=== PATIENT | female | born 1995 ===

== ENCOUNTER 2017-04-13 08:22 | Observation (INO) | payer OTHER ==
[~2017-04-13] VITALS: Ht 165.1 cm; Wt 90.0 kg
[2017-04-13] VITALS (7 sets, daily range): BP systolic 97–152; BP diastolic 60–95; PULSE 76–110; RESP 14–20; O2SAT 97–100
[~2017-04-13 08:22] MED LIST: ESOM40CA41 PO
--- NOTE | 2017-04-13 08:45 | ED.REPORT ---
HPI-Abd Pain F Under 40 Date of Service April 13, 2017 ED Provider: Niko Love MD The patient is a 22 year old female who presents to the ED due to severe vomiting since yesterday morning. For the past 2 years, she vomits bile nearly every day. In the past, she has been given Zofran which has been mildly effective in reducing her nausea. She was admitted at [facility], got an endoscopy and was told she had a hiatal hernia. Gastroenterology at [facility], later diagnosed her with acid reflux. She denies any other medical issues and uses the implant for control. She previously used marijuana regularly and just quit a week ago. Nursing Notes Stated Complaint: THROWING UP/NAUSEA/DEHYDRATED Chief Complaint: Female Abdominal Pain Nursing Notes Reviewed: Yes Allergies: Coded Allergies: No Known Allergies (Verified Allergy, Unknown, 06/14/16) Scheduled Esomeprazole Magnesium (Nexium) 40 Mg Capsule.dr 40 MG PO DAILY General Time Seen by MD: 08:45 Chief Complaint Vomiting moderate Hx Obtained From: Patient Arrived By: Walk-in Onset Occurred: Yesterday Symptom Duration: Since onset Progression since Onset: Gradually worsening Location: : Abdomen lower Quality: Painful Severity: Current: Mild Recent Healthcare: Recent doctor visit Similar Sx Previous: Yes Past Medical History Past Medical History Notes: no PCP at this time Past Medical History None reported Denies history of hepatitis Past Surgical History cholecystectomy 02/20/16 Reports: Cholecystectomy Family History none reported Smoking History Current Every Day Smoker Social History Alcohol Use: Denies alcohol use Drug Use: THC Ambulatory Status Independent Review of Systems GI: Reports: Vomiting Complete sys rev & neg: except as marked. Physical Exam Initial Vital Signs Vital Signs (First) Date Time Temp Pulse Resp B/P Pulse Ox O2 Delivery O2 Flow Rate FiO2 04/13/17 08:29 92 20 152/95 100 Room Air 04/13/17 08:42 37.0 Initial VS: Reviewed General/Constitutional: Awake, Alert, Cooperative Respiratory / Chest: Atraumatic, No respiratory distress, No wheezing Cardiovascular: Heart rate NL, Regular rhythm Abdomen: Soft Back: Full range of motion Head / Eyes: Normocephalic, PERRL ENT: Airway patent Skin: No rash, Warm, Dry Upper Extremity / MS: Atraumatic, Full range of motion Lower Extremity / Pelvis / MS: Atraumatic, Full range of motion Interpretation & Diagnostics Lab Results Interpretation Result Diagram: 04/13/17 1005 04/13/17 1005 Test 04/13/17 10:05 White Blood Count 23.0th/mm3 (3.8-10.1) Red Blood Count 5.50mil/mm3 (3.90-5.20) Hemoglobin 14.8g/dL (12.0-15.6) Hematocrit 43.1% (35.0-46.0) Mean Corpuscular Volume 78.4fL (81-100) Mean Corpuscular Hemoglobin 26.9pg (27.0-35.0) Mean Corpuscular Hemoglobin Concent 34.3% (32.0-37.0) Red Cell Distribution Width 14.1% (12.3-15.4) Platelet Count 302bil/L (150-400) Neutrophils (%) (Auto) 90.6% (40-74) Lymphocytes (%) (Auto) 5.2% (14-46) Monocytes (%) (Auto) 3.4% (4-12) Eosinophils (%) (Auto) 0% (0-5) Basophils (%) (Auto) 0.2% (0-3) Sodium Level 143mEq/L (134-144) Potassium Level 3.6mEq/L (3.5-5.2) Chloride Level 104mEq/L (97-108) Carbon Dioxide Level 19mmol/L (18-29) Blood Urea Nitrogen 10mg/dL (6-20) Creatinine 0.69mg/dL (0.57-1.00) Estimat Glomerular Filtration Rate 151mL/min (>59) Glucose Level 116mg/dL (60-99) Calcium Level 9.9mg/dL (8.5-10.1) Total Bilirubin 0.5mg/dL (0.0-1.2) Aspartate Amino Transf (AST/SGOT) 20U/L (0-50) Alanine Aminotransferase (ALT/SGPT) 12U/L (0-32) Alkaline Phosphatase 58U/L (25-150) Total Protein 7.9g/dL (6.4-8.4) Albumin 4.6g/dL (3.4-5.0) Lipase 27U/L (13-60) Re-Eval/Medical Decision Re-Evaluation/Progress : Time of Eval: 12:00 Re-Evaluation/Progress Note: Patient is moderately improved but not feeling well enough to go home. Consultation : Referral / Consult Name: Rashard Marrero MD Consulted With: Hospitalist Review Engineer: Accepts admit Counseled Regarding: Diagnosis, Lab results, Need for admission Discharge & Departure Primary Impression: Intractable nausea and vomiting Vomiting type: unspecified Qualified Code: R11.2 - Nausea with vomiting, unspecified Disposition: ADMITTED TO HOSPITAL Discharge Condition All VS Reviewed: Yes Condition: Stable Referrals: Flori Desir (PCP) Alma Attestation Portion of this note were transcribed by Ana Nelson. I, Dr. Love, personally performed the history, physical exam, and medical decision-making: I reviewed and confirmed the accuracy for the information in the transcribed note. Signed by: alma Garrido, 04/13/17 1400 copies to: Flori Desir Kirk H MD April 13, 2017 08:45 Ana Nelson April 13, 2017 08:52
[2017-04-13] MEDS ORDERED: 0.9% Sodium Chloride 1,000 ML IV ONE (09:02)
[2017-04-13] MEDS ORDERED: MetoCLOpramide 5 mg/mL 2 mL Inj IVPUSH ONE (09:05)
[2017-04-13] MEDS ORDERED: Ondansetron 2 mg/mL 2 mL Inj IVPUSH ONE (09:05)
[2017-04-13] MEDS ORDERED: Haloperidol 5 mg/mL Inj IVPUSH ONE ×2 (09:05→14:25)
[2017-04-13] MEDS ORDERED: Pantoprazole 4 mg/mL 10 mL Inj IVPUSH ONE (09:05)
[2017-04-13] MEDS ORDERED: Dexamethasone 10 mg/mL Inj IVPUSH ONE (09:05)
[2017-04-13] MEDS ORDERED: Acetaminophen IV 1,000 MG in IV Premix 1 EACH IV ONE (09:05)
[2017-04-13] MEDS ORDERED: Ondansetron 8 mg ODT Tablet PO ONE (09:05)
[2017-04-13] MEDS ORDERED: Promethazine 50 mg/mL Inj IM ONE (09:50)
[2017-04-13 10:18] LABS: BASOPHILS % (AUTO) 0.2 % (0-3); EOSINOPHILS % (AUTO) 0 % (0-5); MONOCYTES % (AUTO) 3.4 % (4-12); Mean Corpuscular Hemoglobin 26.9 pg (27.0-35.0); Mean Corpuscular Volume 78.4 fL (81-100); NEUTROPHILS % (AUTO) 90.6 % (40-74); Platelet Count 302 bil/L (150-400)
[2017-04-13] MEDS ORDERED: Ondansetron 2 mg/mL 2 mL Inj IVPUSH PRN (12:40)
[2017-04-13] MEDS ORDERED: Polyethylene Glycol (PEG) 17 Gm Powder PO PRN (12:40)
[2017-04-13] MEDS ORDERED: Alum-Mag Hydrox-Simeth 30 mL Suspension PO PRN (12:40)
[2017-04-13] MEDS: D5 0.9% NaCl + KCl 20 mEq/L 1,000 ML IV SCH ×2 (14:07→20:08)
--- NOTE | 2017-04-13 15:02 | NUR ---
Admit Pt arrived to [facility] 238-1 at 1303 from the ED via stretcher, ambulates w/o any assistance. Pt is a pleasant young lady, other than nausea and pain appears to be a perfectly well and healthy person. VS show mild hypertension but pt is afebrile. Pt oriented to room and call light, will call w/ needs.
[2017-04-13 15:09] LABS: APPEARANCE,URINE CLEAR (CLEAR,HAZY); COLOR,URINE YELLOW (YELLOW); PH,URINE 7.5 (5.0-8.0)
[2017-04-13 15:10] LABS: OCCULT BLOOD,URINE NEGATIVE (NEGATIVE); UROBILINOGEN,URINE NORMAL (NORMAL)
[2017-04-13] MEDS ORDERED: Haloperidol 5 mg/mL Inj IVPUSH PRN (15:50)
[2017-04-13] MEDS ORDERED: Donnatal-Lido-Mylant 1:1:1 15 mL Syringe PO PRN (15:50)
--- NOTE | 2017-04-13 15:53 | PCM.HPMED ---
Subjective Date of Service April 13, 2017 Primary Provider: Admitting Physician: Rashard Marrero MD Primary Care Physician: Nopshobha Attending Physician: Rashard Marrero MD Chief Complaint: Nausea and vomiting History of Present Illness: 22-year-old female presenting to emergency room due to severe vomiting starting 24 hours earlier. She has had issues with nausea and vomiting for 2 years. A year ago she had a cholecystectomy and had difficulty thereafter with postoperative nausea. She has since been admitted to [facility] and got EGD and told she had a hiatal hernia and then seen by GI at [facility] and diagnosed with reflux. She still smokes marijuana up until fairly recently. We have discussed and she is aware of cannabis hyperemesis syndrome. Review of Systems: Gen.: No fevers chills weight loss weight gain Eyes: no visual disturbances or blurring vision HEENT: No nose/throat drainage, no pain in ears or throat, no hearing loss Lymph: No lymph nodes noted Cardiac: No chest pain, orthopnea, PND, palpitations , pedal edema or dyspnea on exertion Pulmonary: no cough, wheezing or bringing up of sputum GI: Novomiting blood or black in the stool + nausea and vomiting : no dysuria hematuria urinary frequency or decrease in urine output Musculoskeletal: Joint swelling no joint pain no new muscle aches or back pain Neuro: No syncope, seizures no loss of consciousness no new focal weakness, numbness or tingling Psychiatric: New new anxiety insomnia or depression Endocrine: No new heat or cold intolerances polyuria or polydipsia Hematology: No lymphadenopathy or easy bleeding or bruising noted skin: No new rashes, stasis dermatitis Allergies Coded Allergies: No Known Allergies (Verified Allergy, Unknown, 04/13/17) Home Medications She tells me she is on no medications however esomeprazole 40 mg daily is listed In addition to her implanted control PMH GERD/hiatal hernia persistent nausea and vomiting Surgical history: Cholecystectomy 02/20/16 Social: Significant other at the bedside she smokes half a pack plus per day, minimal alcohol use, admits to marijuana states she quit a week ago. Family history negative for cancer, diabetes, early heart disease or anything else that might be related to this problem Social History Hx Alcohol Use: No Hx Substance Use: No Smoking Status: Current Every Day Smoker Exam Vital Signs Vital Sign - Last Date Time Temp Pulse Resp B/P Pulse Ox O2 Delivery O2 Flow Rate FiO2 5/23/17 14:56 36.8 88 16 148/93 100 Room Air Exam Gen.- A+ O 3 no apparent distress. Heavy female lying in bed looks tired Eyes- open conjunctiva clear, pupils equal nonicteric Mouth- oral mucosa moist, no exudate ENT- ears normal, nose normal Neck- supple/trach midline CVS- RRR no murmur or gallop Lungs- CTA GI- NABS/NT soft Musc- moving 4 no obvious deformity Neuro- cranial nerves II through XII intact to gross examination, nonfocal Skin- warm and dry, no rashes/lesions/wounds noted Psych- pleasant and appropriate, Lab and Diagnostics Result Diagram: 04/13/17 1005 04/13/17 1005 Additional Diagnostics: EGD IMPRESSIONS: 1. Mild bile reflux. 2. Mild nonerosive gastritis, status post biopsy. RECOMMENDATION: 1. Await pathology results. (-) H pylori, histo benign 2. Continue Nexium 40 mg once a day. 3. GERD diet. 4. Follow up in GI clinic as needed. Mitesh Rodríguez MD 09/04/16 0911 Assessment & Plan 22-year-old female with acute/chronic nausea and vomiting ongoing for greater than one year but acutely worse over 36 hours. Nausea/vomiting- differential includes cannabis hyperemesis syndrome, side effect of implanted control -CT scan 12/02/15 no hiatal hernia -IV fluids, monitor electrolytes -We will continue when necessary Zofran however this is not work patient as needed Haldol/Benadryl which she has been receiving with good results. -PPI, pantoprazole 40 mg twice a day in addition to H1RA twice a day -GI cocktail Leukocytosis- probable stress reaction monitor. Prophylaxis- DVT patient is low risk, GI on maximal therapy already. Disposition- patient is independent and has no discharge needs full code. Rashard Marrero MD April 13, 2017 15:53
[2017-04-13] MEDS ORDERED: Pantoprazole 40 mg ER24 Tablet PO SCH (16:30)
--- NOTE | 2017-04-13 18:15 | NUR ---
VS Pt vs have changed rapidly since admit. Pt now mildly febrile, bp drop and now tachy. continue to monitor per dr sykes.
[2017-04-13] MEDS: Famotidine Inj 20 MG in IV Premix 1 EACH IV SCH (20:07)
[2017-04-13] MEDS: Pantoprazole 4 mg/mL 10 mL Inj IVPUSH SCH (21:00)
[2017-04-14 00:31] VITALS: BP 101/58; PULSE 85; RESP 14; O2SAT 98
[2017-04-14] MEDS: D5 0.9% NaCl + KCl 20 mEq/L 1,000 ML IV SCH ×2 (02:11→09:50)
[2017-04-14 02:22] VITALS: BP 113/70; PULSE 81
[2017-04-14 05:19] VITALS: BP 109/68; PULSE 74; RESP 17; O2SAT 100
--- NOTE | 2017-04-14 05:21 | NUR ---
Shift Note Assumed pt care at 1900, Bp systolic trends throughout night mid 90's to low 100's, pt remained asymptomatic, continues with IVF, no nausea/vomiting, call light in reach at all times.
[2017-04-14 08:02] LABS: BASOPHILS % (AUTO) 0.1 % (0-3); EOSINOPHILS % (AUTO) 0.1 % (0-5); Mean Corpuscular Hemoglobin 26.7 pg (27.0-35.0); Mean Corpuscular Volume 79.5 fL (81-100); NEUTROPHILS % (AUTO) 74.8 % (40-74); Platelet Count 251 bil/L (150-400)
[2017-04-14] MEDS: Famotidine Inj 20 MG in IV Premix 1 EACH IV SCH (08:05)
[2017-04-14] MEDS: Pantoprazole 4 mg/mL 10 mL Inj IVPUSH SCH (08:05)
[2017-04-14 08:25] LABS: Magnesium 2.1 mg/dL (1.6-2.6)
--- NOTE | 2017-04-14 08:49 | NUR ---
Social Work: Screening Data: Pt is a 22 y/o female admitted for nausea and vomiting. Pt's PCP is not listed. EMR reviewed. No drug use reported. No BODY MECHANIC or d/c planning needs anticipated at this time. BODY MECHANIC will continue to follow if needs arise. Assessment: Pt who is independent at baseline. Plan: Pt will d/c home via POV when medically stable. No BODY MECHANIC or d/c planning needs anticipated at this time. BODY MECHANIC will continue to follow if needs arise. KEREN James Addendum: 04/14/17 at 1059 by MADDIE REED Pt does report marijuana use to MD and that she quit a week ago. KEREN James
[2017-04-14 09:44] VITALS: BP 125/81; PULSE 71; RESP 18; O2SAT 99
--- NOTE | 2017-04-14 10:45 | NUR ---
Morning Rounds Staffed patient's case with case management, stated Dr. Marrero was previously present and stated discharge is the plan for today, as long as patient is tolerating PO and her nausea/vomiting is under control.
--- NOTE | 2017-04-14 10:50 | PCM.DIMED ---
Discharge Instructions Date of Service April 14, 2017 Dates of Hospitalization April 13, 2017 at 12:40 Discharge Diagnosis Discharge Diagnosis Nausea and vomiting, dehydration Diet Discharge Diet: No restrictions, Other (start with a bland diet and reintroduce foods you may find some foods cause more nausea/vomiting and other) Activity Discharge Activity: No restrictions Call your provider Call your provider for: Vomitting Patient Instructions Patient Instructions Look into diet and see what causes discomfort and symptoms may be bringing them to your doctor's attention or perhaps he may discover dietary modifications that does work for you. Try probiotics. Follow-up plan We need a primary care provider. He may need a regular mortar maker however endoscopy as yet has been unrevealing so it is not clear what more they could provide. Additional Information Both marijuana usage and your contraceptive could be aggravating her problem. I would start with marijuana cessation and if the symptoms resolve then you know that is the problem. If they do not resolve he might examine the contraceptive. Also try probiotics and dietary modifications and see what minimizes symptoms Rashard Marrero MD April 14, 2017 10:50
[2017-04-14] MEDS ORDERED: FAMO20T PO (10:55)
[2017-04-14] MEDS ORDERED: LIDO20SO PO (10:55)
[2017-04-14] MEDS ORDERED: METO10TA3 PO (10:55)
[2017-04-14] MEDS ORDERED: ONDA4TAB12 PO (10:56)
[2017-04-14] MEDS ORDERED: PANT40TA3 PO (10:56)
--- NOTE | 2017-04-14 10:59 | NUR ---
Social Work: Discharge Data: Pt is on day 1 of hospitalization. EMR reviewed. D/C orders are in. Pt discussed in rounds. states that pt admits to marijuana use and that it could be a contributing factor to her nausea and vomiting. ACCOUNTING REPRESENTATIVE asked if a CD assessment or resources are needed, states a CD assessment or resources not needed; ACCOUNTING REPRESENTATIVE did not receive CD assessment order. No further ACCOUNTING REPRESENTATIVE or d/c planning needs at this time. ACCOUNTING REPRESENTATIVE will continue to follow. Assessment: Pt who is independent at baseline. Plan: Pt will d/c home via POV today. No further ACCOUNTING REPRESENTATIVE or d/c planning needs at this time. ACCOUNTING REPRESENTATIVE will continue to follow. KEREN James
--- NOTE | 2017-04-14 11:06 | NUR ---
Rx Clarification Contacted Dr. Marrero with the following cook page: Pharmacy called for clarification of Lidocaine Rx, wants to know the total quantity needed, as Rx states "dose #10", pharmacist also needs to clarify the drug since it states Lidocaine, wanted to clarify a gi cocktail was not wanted instead. Thanks. Vitkoriya [facility] [id number]
--- NOTE | 2017-04-14 11:35 | NUR ---
Rx Clarification follow-up Contacted Dr. Marrero to follow up on previously sent cook page, as no response had been received and there has not been a change in the Rx per the discharge information. Dr. Marrero stated he has already spoke with the pharmacist at [facility] and clarified what he needed, stated it may not have been changed in the discharge instructions, but it is clarified with the pharmacist.
--- NOTE | 2017-04-14 11:55 | NUR ---
Discharge Note Patient was given all discharge instructions and information at this time, did not have any questions at this time. Patient's IV was discontinued intact at this time. Patient and patient's mother gathered all belongings at this time. Patient stated she did not want to be transported via wheelchair, stated she wanted to walk. Patient was escorted to the end of the unit, she was accompanied by her mother.
--- NOTE | 2017-04-14 15:17 | PCM.DC.MED ---
Discharge Summary Date of Service April 14, 2017 Dates of Hospitalization Date of Hospital Admission April 13, 2017 at 12:40 Date of Discharge: April 14, 2017 Providers: Admitting Physician: Taylor Marrero MD Primary Care Physician: Nopshobha Attending Physician: Taylor Marrero MD Diagnosis at Time of Discharge Diagnosis at Time of Discharge Nausea and vomiting, dehydration Consultations none Procedures Other Diagnostics EGD IMPRESSIONS:Mitesh Rodríguez MD 09/04/16910 1. Mild bile reflux. 2. Mild nonerosive gastritis, status post biopsy. RECOMMENDATION: 1. Await pathology results. (-) H pylori, histo benign 2. Continue Nexium 40 mg once a day. 3. GERD diet. 4. Follow up in GI clinic as needed. Mitesh Rodríguez MD 09/04/16910 Brief History 22-year-old female presenting to emergency room due to severe vomiting starting 24 hours earlier. She has had issues with nausea and vomiting for 2 years. A year ago she had a cholecystectomy and had difficulty thereafter with postoperative nausea. She has since been admitted to [facility] and got EGD and told she had a hiatal hernia and then seen by GI at [facility] and diagnosed with reflux. She still smokes marijuana up until fairly recently. We have discussed and she is aware of cannabis hyperemesis syndrome. Hospital Course 22-year-old female with acute/chronic nausea and vomiting ongoing for greater than one year but acutely worse over 36 hours admit 04/13 04/14 patient really has not required any meds and is tolerating regular food and is anxious to discharge home. We revisited cannabis hyperemesis syndrome as well as the possibility that her control could be responsible but the first thing she should do is stop smoking marijuana and see if her that improves. Also consider probiotics. I gave her prescriptions for pantoprazole since she felt the Prilosec made her eat after taking it, Reglan, Zofran, GI cocktail. She should get a primary care provider as soon as possible I am not sure what urgent referral to a foot press operator would provide the done endoscopy twice and it has been unrevealing. She is discharging home in stable improved condition, prescriptions were transmitted to [facility] pharmacy. #Nausea/vomiting- differential includes cannabis hyperemesis syndrome, side effect of implanted control -CT scan 12/02/15 no hiatal hernia -IV fluids, monitor electrolytes -We will continue when necessary Zofran however this is not work patient as needed Haldol/Benadryl which she has been receiving with good results. -PPI, pantoprazole 40 mg twice a day in addition to H1RA twice a day -GI cocktail #Leukocytosis- probable stress reaction monitor. #Prophylaxis- DVT patient is low risk, GI on maximal therapy already. #Disposition- patient is independent and has no discharge needs full code. Exam Vital Signs (Last) Date Time Temp Pulse Resp B/P Pulse Ox O2 Delivery O2 Flow Rate FiO2 04/14/17 09:44 36.8 71 18 125/81 99 Room Air Exam Gen.- A+ O 3 no apparent distress. Just took a shower looks like she feels much better Eyes- open conjunctiva clear, pupils equal nonicteric ENT- ears normal, nose normal Neck- supple/trach midline CVS- rate normal Lungs- normal no accessory muscle usage GI- flat Musc- moving 4 no obvious deformity Neuro- cranial nerves II through XII intact to gross examination, nonfocal Skin- warm and dry, no rashes/lesions/wounds noted Psych- pleasant and appropriate, Test 04/13/17 10:05 04/13/17 14:46 04/14/17 07:20 Total Bilirubin 0.5mg/dL (0.0-1.2) Aspartate Amino Transf (AST/SGOT) 20U/L (0-50) Alanine Aminotransferase (ALT/SGPT) 12U/L (0-32) Alkaline Phosphatase 58U/L (25-150) Total Protein 7.9g/dL (6.4-8.4) Albumin 4.6g/dL (3.4-5.0) Lipase 27U/L (13-60) Urine Color Yellow (YELLOW) Urine Appearance Clear (CLEAR,HAZY) Urine pH 7.5 (5.0-8.0) Urine Specific [place] 1.015 (1.003-1.035) Urine Protein Negativemg/dL (NEG,TRACE) Urine Glucose (UA) Negativemg/dL (NEGATIVE) Urine Ketones >80mg/dL (NEGATIVE) Urine Occult Blood Negative (NEGATIVE) Urine Nitrite Negative (NEGATIVE) Urine Bilirubin Negative (NEGATIVE) Urine Urobilinogen Normalmg/dL (NORMAL) Urine Leukocyte Esterase Negative (NEGATIVE) Urine RBC 0-2/hpf (0-2) Urine WBC 0-5/hpf (0-5) Urine Epithelial Cells Moderate/hpf (NONE-MOD) Urine Crystals None seen (NONE SEEN) Urine Bacteria Few/hpf (NONE-FEW) Urine Hyaline Casts None/lpf (NONE) Urine Granular Casts None seen (NONE SEEN) Urine Waxy Casts None seen (NONE SEEN) Urine Red Blood Cell Casts None seen (NONE SEEN) Urine White Blood Cell Casts None seen (NONE SEEN) Urine Mucus Present (None Seen) Urine Trichomonas None seen (NONE SEEN) Urine Yeast None (NONE SEEN) Urinalysis Comment None Urine Culture Reflexed Not indicated Urine Opiates Screen Negative Urine Methadone Screen Negative Urine Barbiturates Screen Negative Urine Amphetamines Screen Negative Urine Benzodiazepines Screen Negative Urine Cocaine Metabolite Screen Negative Urine Cannabinoids Screen Positive White Blood Count 16.2th/mm3 (3.8-10.1) Red Blood Count 4.64mil/mm3 (3.90-5.20) Hemoglobin 12.4g/dL (12.0-15.6) Hematocrit 36.9% (35.0-46.0) Mean Corpuscular Volume 79.5fL (81-100) Mean Corpuscular Hemoglobin 26.7pg (27.0-35.0) Mean Corpuscular Hemoglobin Concent 33.6% (32.0-37.0) Red Cell Distribution Width 14.3% (12.3-15.4) Platelet Count 251bil/L (150-400) Neutrophils (%) (Auto) 74.8% (40-74) Lymphocytes (%) (Auto) 15.7% (14-46) Monocytes (%) (Auto) 9.0% (4-12) Eosinophils (%) (Auto) 0.1% (0-5) Basophils (%) (Auto) 0.1% (0-3) Sodium Level 144mEq/L (134-144) Potassium Level 4.1mEq/L (3.5-5.2) Chloride Level 109mEq/L (97-108) Carbon Dioxide Level 20mmol/L (18-29) Blood Urea Nitrogen 11mg/dL (6-20) Creatinine 0.55mg/dL (0.57-1.00) Estimat Glomerular Filtration Rate 196mL/min (>59) Glucose Level 110mg/dL (60-99) Calcium Level 8.9mg/dL (8.5-10.1) Magnesium Level 2.1mg/dL (1.6-2.6) Discharge Medications Discharge Medications Famotidine (Pepcid) 20 Mg Tablet 20 MG PO BID Prescribed by: TAYLOR MARRERO MD Pantoprazole DR (Pantoprazole DR) 40 Mg Tablet.dr 40 MG PO DAILY Prescribed by: TAYLOR MARRERO MD As needed Lidocaine HCl (Lidocaine HCl Viscous) 20 Mg/1 Ml Solution 15 ML PO QID PRN PRN For Epigastric Distress Prescribed by: TAYLOR MARRERO MD Metoclopramide (Metoclopramide) 10 Mg Tablet 10 MG PO QID PRN PRN For Nausea Prescribed by: TAYLOR MARRERO MD Ondansetron ODT (Ondansetron ODT) 4 Mg Tab.rapdis 4-8 MG PO q8 PRN PRN For Nausea Prescribed by: TAYLOR MARRERO MD Followup Plan Disposition: Patient going home Follow-up plan We need a primary care provider. He may need a regular foot press operator however endoscopy as yet has been unrevealing so it is not clear what more they could provide. Discharge Diet: No restrictions, Other (start with a bland diet and reintroduce foods you may find some foods cause more nausea/vomiting and other) Discharge Activity: No restrictions Patient Instructions Look into diet and see what causes discomfort and symptoms may be bringing them to your doctor's attention or perhaps he may discover dietary modifications that does work for you. Try probiotics. Follow-up with PCP in: Other (find primary care provider) Time spent >30min Taylor Marrero MD April 14, 2017 15:17
== END 2017-04-14 11:55 | disposition home or self-care (01) ==
LOC: SED 08:22 → MOC 12:40
PROVIDERS: ADMIT Hospitalist; ATTEND Hospitalist
DX: R11.2 Nausea with vomiting, unspecified (principal); E86.0 Dehydration; K21.9 Gastro-esophageal reflux disease without esophagitis; D72.829 Elevated white blood cell count, unspecified; K44.9 Diaphragmatic hernia without obstruction or gangrene; F12.90 Cannabis use, unspecified, uncomplicated; F17.210 Nicotine dependence, cigarettes, uncomplicated
CPT/HCPCS: 36415; 80048; 80053; 81000; 83690; 83735; 85025; 96361; 96374; 96375; 96376; 99285; G0378; G0480; J0131; J1100; J1200; J1630; J1885; J2405; J2765; J3490; J7030